=== PATIENT | female | born 1950 | race Two or more races ===

== ENCOUNTER 2023-02-22 03:46 | Emergency (ER) | payer MEDICARE, OTHER ==
[~2023-02-22] VITALS: Ht 170.2 cm; Wt 129.5 kg
[2023-02-22] MEDS ORDERED: SODIUM BICARBONATE 8.4% INJ 50ML SYRINGE IV ONE (03:47)
[2023-02-22] MEDS ORDERED: EPINEPHrine HCL 1 MG/10 ML SYRG IV ONE (03:47)
[2023-02-22] MEDS ORDERED: DEXTROSE (50%) 50ML SYRG IV ONE (03:47)
[2023-02-22] MEDS ORDERED: CALCIUM CHLOR(10%) 100MG/ML 10ML SYRINGE IV ONE (03:47)
[2023-02-22] MEDS ORDERED: MIDAZOLAM DRIP 50 mg/50mL 50 ML IV SCH (04:15)
[2023-02-22 04:39] LABS: Hemoglobin 9.3 g/dL (12.2-16.2); Mean Corpuscular Hemoglobin 28.5 pg (28.0-32.0)
[2023-02-22 04:41] LABS: Hematocrit 33.2 % (36.0-46.0); Mean Corpuscular Volume 101.9 fL (80.0-100.0); Red Blood Cells 3.26 10^6/uL (4.0-5.20)
[2023-02-22 04:53] LABS: Red Cell Distribution Width 20.5 % (11.8-14.3)
[2023-02-22 04:55] LABS: White Blood Cell 39.5 10^3/uL (4.4-10.8)
[2023-02-22 04:57] LABS: Basophils % (manual) 0 (0.0-2.0); Blast Cells 0; Promyelocytes % 0; Reactive Lymphocytes 0
[2023-02-22 04:58] LABS: Albumin 1.4 g/dL (3.4-5.0); BUN/Creatinine Ratio 17.2 (10.0-20.0); Calcium 7.9 mg/dL (8.5-10.1)
[2023-02-22 05:01] LABS: Bilirubin, Total 0.3 mg/dL (0.2-1.0); Total Protein 4.9 g/dL (6.4-8.2)
[2023-02-22 05:03] LABS: Lactic Acid w/Reflex 12.8 mmol/L (0.4-2.0)
[2023-02-22 05:12] LABS: INR 2.05 (0.9-1.15)
[2023-02-22] MEDS ORDERED: NOREPINEPHRINE 8 MG/250ML KIT 250 ML IV ONE (05:17)
[2023-02-22 05:21] LABS: Partial Thromboplastin Time 104.9 sec (24.6-33.4)
[2023-02-22 05:22] LABS: Potassium 6.3 mmol/L (3.5-5.1)
[2023-02-22] MEDS ORDERED: EPINEPHrine HCL 250 ML IV SCH ×2 (05:45→06:00)
[2023-02-22] MEDS ORDERED: EPINEPHrine HCL 250 ML IV ONE (05:52)
[2023-02-22] MEDS ORDERED: NOREPINEPHRINE 8 MG/250ML KIT 250 ML IV SCH (06:00)
[2023-02-22] MEDS ORDERED: SODIUM BICARBONATE 8.4% INJ 50ML SYRINGE ONE (06:33)
[2023-02-22 07:45] LABS: Band Neutrophils % (manual) 7; Eosinophils % (manual) 1 (0-7); Lymphocytes % (manual) 2 (10.0-50.0); Metamyelocytes % 3; Monocytes % (manual) 2 (0-12); Myelocytes % 2
[2023-02-22] MEDS ORDERED: VASOPRESSIN 20 UNITS in SODIUM CHL 0.9% 99 ML IV SCH (08:00)
[2023-02-22] MEDS ORDERED: DOPamine 1600MCG/ML D5W 250 ML IV ONE ×2 (09:00→09:30)
[2023-02-22 09:11] VITALS: BP 77/59
[2023-02-22 09:44] LABS: Lactic Acid w/Reflex 17.4 mmol/L (0.4-2.0)
[2023-02-22] MEDS ORDERED: PIPERACILLIN-TAZOB 3.375GM 100 ML IV SCH (12:00)
== END 2023-02-22 09:37 ==
LOC: ER 03:46 → EDBD 03:46 → ER 09:37
DX: I46.9 Cardiac arrest, cause unspecified (principal); I10 Essential (primary) hypertension
CPT/HCPCS: 31500; 36415; 36556; 36600; 71045; 80053; 82550; 82805; 83605; 84484; 85007; 85027; 85610; 85730; 86850; 86900; 86901; 87040; 92950; 96365; 99285; J0171; J1265; J2250; J7042; 94002; 94003